=== PATIENT | female | born 1950 ===

== ENCOUNTER 2016-09-05 13:35 | Emergency (ER) | payer MEDICARE, BC ==
[2016-09-05] MEDS ORDERED: Aspirin TAB* 325 MG PO ONE (13:58)
[2016-09-05] MEDS ORDERED: Aspirin Low Dose CHEW TAB* 81 MG PO ONE (13:58)
[2016-09-05 14:28] LABS: Hematocrit 44 % (35-47); Hemoglobin 14.2 g/dl (12.0-16.0); Mean Corpuscular HGB Conc 32 g/dl (31-36); Mean Corpuscular Hemoglobin 28 pg (27-31); Mean Corpuscular Volume 87 fL (80-97); Mean Platelet Volume 9 um3 (7.4-10.4); Red Blood Count 5.07 10^6/ul (4.0-5.4); Red Cell Distribution Width 14 % (10.5-15); White Blood Count 6.3 10^3/ul (3.5-10.8)
[2016-09-05] MEDS: Nitroglycerin TAB 0.4 MG* 0.4 MG TAB SL ONE ×3 (14:28→14:48)
--- NOTE | 2016-09-05 14:29 | RAD ---
Indication: Chest pain. Single frontal view of the chest performed at 1407 hours was reviewed. Comparison is made with previous exam dated May 15, 2005. No mediastinal shift is noted. Heart is of normal size and configuration. Lung dior appear clear. IMPRESSION: NO ACTIVE CARDIOPULMONARY DISEASE IS NOTED.
[2016-09-05 14:44] LABS: Albumin 4.2 g/dL (3.2-5.2); BUN/Creatinine Ratio 15.5 (8-20); Calcium 10.4 mg/dL (8.6-10.3); EGFR African American 105.3 (>60); EGFR Non-African American 81.9 (>60); Globulin 3.2 g/dL (2-4); Potassium 3.8 mmol/L (3.5-5.0); Total Bilirubin 0.8 mg/dL (0.2-1.0); Total Protein 7.4 g/dL (6.4-8.9)
[2016-09-05 14:45] LABS: Troponin I 0.01 ng/mL (<0.04)
[2016-09-05] MEDS ORDERED: NS 0.9% 1000 ML* 1,000 ML IV ONE (15:00)
--- NOTE | 2016-09-05 15:02 | ED ---
Yoshi Diaz Matthew, scribed for Jean Conway MD on 09/05/16 at 1446 . HPI Chest Pain - HPI Summary HPI Summary: A 66 y/o female presents to the ED with intermittent chest pain since 2 weeks ago. The pain is currently rated 3/10 in severity. Last night the patient began to have associated jaw pain and left arm pain, which prompted her to presents to the ED. Associated symptoms include nausea, diaphoresis, left arm pain, pain between the shoulder blades, right arm pain, and coughing. The patient denies weakness, fever, vomiting, and pedal edema. Currently, the patient states that she is having trouble eating, because she can't put the food into her mouth w/o spitting it out. PMHx includes GERD. She states that she has chest pain often, because of her Hx of GERD. The patient is currently on a paleo diet. - History of Current Complaint Chief Complaint: EDChestPainROMI Time Seen by Provider: 09/05/16 13:58 Hx Obtained From: Patient Onset/Duration: Started Weeks Ago, Atraumatic, Still Present Timing: Intermittent, Lasting Weeks Initial Severity: Moderate Current Severity: Moderate Pain Intensity: 3 Pain Scale Used: 0-10 Numeric Chest Pain Radiates: Yes Chest Pain Radiates To:: Jaw Associated Signs and Symptoms: Positive: Chest Pain, Diaphoresis, Nausea, Cough , Other: - NO pedal edema. Negative: Weakness, Fever, Vomiting - Allergy/Home Medications Allergies/Adverse Reactions: Allergies Allergy/AdvReac Type Severity Reaction Status Date / Time Epinephrine Allergy Severe HEART Verified 09/05/16 13:47 POUNDS PMH/Surg Hx/FS Hx/Imm Hx Endocrine/Hematology History: Denies: Hx Diabetes, Hx Thyroid Disease Cardiovascular History: Reports: Hx Hypercholesterolemia Denies: Hx Hypertension, Hx Peripheral Vascular Disease, Other Cardiovascular Problems/Disorders Respiratory History: Reports: Hx Asthma - USESES INHALER Denies: Other Respiratory Problems/Disorders GI History: Reports: Hx Gastroesophageal Reflux Disease Denies: Other GI Disorders History: Denies: Hx Renal Disease Musculoskeletal History: Reports: Hx Tendonitis - LEFT HAND DOES PT Denies: Hx Arthritis, Hx Rheumatoid Arthritis, Hx Osteoporosis Sensory History: Denies: Hx Cataracts, Hx Contacts or Glasses, Hx Glaucoma, Hx Hearing Aid Opthamlomology History: Denies: Hx Cataracts, Hx Contacts or Glasses, Hx Glaucoma Neurological History: Reports: Hx Migraine - OCCULAR X2 AND 1 OR MIGRAINES Denies: Hx Headaches, Hx Seizures, Hx Transient Ischemic Attacks (TIA) Psychiatric History: Denies: Hx Anxiety, Hx Depression - Cancer History Hx Chemotherapy: No Hx Radiation Therapy: No - Surgical History Surgery Procedure, Year, and Place: partial hysterectomy 1985; cataracts right eye 04/2015. Tonsillectomy Hx Anesthesia Reactions: Yes - SENSITIVE TO ANESTHESIA Infectious Disease History: No Infectious Disease History: Denies: Traveled Outside the [place] in Last 30 Days - Family History Known Family History: Positive: Hypertension Negative: Cardiac Disease Family History: FHx of breast CA - Social History Alcohol Use: Occasionally Alcohol Amount: 1 Q 1-2 WEEKS Substance Use Type: Reports: None Smoking Status (MU): Former Smoker Amount Used/How Often: PACK A DAY Have You Smoked in the Last Year: No Review of Systems Positive: Skin Diaphoresis. Negative: Fever, Chills Eyes: Negative Negative: Erythema ENT: Negative Negative: Sore Throat Positive: Chest Pain Positive: Cough. Negative: Shortness Of Breath Gastrointestinal: Negative Positive: Nausea. Negative: Abdominal Pain, Vomiting Genitourinary: Negative Negative: dysuria, hematuria Positive: Myalgia - left arm, right arm, and jaw pain; pain between the shoulder blades Skin: Negative Negative: Rash Neurological: Negative Negative: Headache, Weakness Psychological: Normal All Other Systems Reviewed And Are Negative: Yes Physical Exam Triage Information Reviewed: Yes Vital Signs On Initial Exam: Initial Vitals Temp Pulse Resp BP Pulse Ox 98.4 F 96 16 162/83 97 09/05/16 13:47 09/05/16 13:47 09/05/16 13:47 09/05/16 13:47 09/05/16 13:47 Vital Signs Reviewed: Yes Appearance: Positive: Well-Appearing, No Pain Distress Skin: Positive: Warm, Dry Head/Face: Positive: Other - Normocephalic; Atraumatic Eyes: Positive: Conjunctiva Clear Dental: Negative: Cervical Lymphadenopathy Neck: Positive: Supple, No Lymphadenopathy, Other: - Musculoskeletal ROM normal neck; No JVD Respiratory/Lung Sounds: Positive: Breath Sounds Present, Other - Normal Effort. Negative: Rales, Rhonchi, Stridor, Tracheal Deviation, Wheezes Cardiovascular: Positive: RRR, Other - Heart sounds normal; Intact distal pulses ; The pedal pulses are 2+ and symmetric. Radial pulses are 2+ and symmetric.. Negative: Murmur Abdomen Description: Positive: Nontender, Soft, Other: - No Rebound. Negative: Distended, Guarding Musculoskeletal: Negative: Edema Left, Edema Right Neurological: Positive: Alert, Oriented to Person Place, Time Psychiatric: Positive: Affect/Mood Appropriate Diagnostics - Vital Signs Vital Signs Temp Pulse Resp BP Pulse Ox 09/05/16 13:47 98.4 F 96 16 162/83 97 - Laboratory Result Diagrams: 09/05/16 14:19 09/05/16 14:19 Lab Statement: Any lab studies that have been ordered have been reviewed, and results considered in the medical decision making process. - EKG 13:38 Cardiac Rate: NL - 87 bpm Ectopy: PVCs - Ocassional EKG Interpretation: Sinus arrhythmia; No ST Changes Chest Pain Course/Dx - Diagnoses Provider Diagnoses: Chest pain, unspecified - Provider Notifications Discussed Care Of Patient With: Dr. Hansen (Hosptialist) at 14:52 -- Notified of patient's history and will admit the patient into her services. Discharge - Discharge Plan Condition: Stable Disposition: ADMITTED TO [facility] Referrals: Yomi Brown MD [Primary Care Provider] - The documentation as recorded by the Yoshi goldberg Matthew accurately reflects the service I personally performed and the decisions made by me, Jean Conway MD.
[2016-09-05 17:19] VITALS: BP 104/49
--- NOTE | 2016-09-05 20:47 | CONS ---
HOSPITAL MEDICINE CONSULTATION REPORT: DATE OF CONSULT: 09/05/16 PRIMARY CARE PHYSICIAN: Dr. Yomi Brown. ATTENDING PHYSICIAN: Dr. Troy Luo (dictation provided by Yakelin Rogers NP). REASON FOR CONSULTATION: The patient with chest pain and recommendation for admission. HISTORY OF PRESENT ILLNESS: Ms. Loja is a 66-year-old female with past medical history of GERD who presents to the hospital today with chest discomfort and cold chills. Ms. Loja states that she has ongoing intermittent chest discomfort which has been always been attributed to her GERD. Yesterday, she felt some pain along her right jaw. This morning, she had cold chills. She states that she had discomfort in her chest, but did not feel that was not different from usual. She states that she recently went to a women's cardiac health lecture and felt like she probably met 5/7 cardiac heart disease symptoms that were noted in that lecture and therefore ultimately she decided to come to the emergency room for admission. In the emergency room, Mr. Loja had a troponin, which was 0.01 but based on her concern for chest discomfort and need to rule out acute coronary syndrome, Hospital Medicine was called for admission. PAST MEDICAL HISTORY: 1. GERD. 2. History of cataract surgery on the right. 3. Left knee meniscus repair. 4. History of whiplash with intermittent right-sided hip pain. 5. Asthma. 6. Hyperlipidemia, not currently on any medications. MEDICATIONS: 1. Calcium with phosphorus 1 chewable p.o. daily. 2. Antacid p.r.n. ALLERGIES: EPINEPHRINE. FAMILY HISTORY: The patient reports her mother is still alive. Her dad in his 90s of sepsis. There is no significant history of coronary artery disease in the family. SOCIAL HISTORY: The patient smoked over 20 years ago. Denies any alcohol or drug use. She lives with her , who is the healthcare proxy. REVIEW OF SYSTEMS: A 14-point review of systems was completed with Ms. Loja and all those not mentioned above were negative. PHYSICAL EXAM: Vital Signs: Temperature 98.4, heart rate 70, respiratory rate 13, O2 saturation 94% on room air, blood pressure 104/49. General: Ms. Loja is sitting in the bed. She is in no acute distress. She is calm and cooperative on my examination. Neuro: She is alert and oriented x3. She moves all extremities equally. There is no facial asymmetry, focal weakness. Extraocular movements are intact. Heart: S1, S2. No murmur, rub or gallop and regular. Lungs are clear to auscultation bilaterally with no accessory muscle use. Good aeration. The abdomen is soft and nontender. Bowel sounds positive x4. Extremities: No cyanosis or edema. Skin is intact. DIAGNOSTIC STUDIES/LAB DATA: Sodium 136, potassium 3.8, chloride 102, sodium bicarbonate 28, BUN 11, creatinine 0.71, glucose 106, lactic acid 0.9. WBC 6.3 , hemoglobin 14.2, hematocrit 44, platelet count 236. EKG shows sinus rhythm with no evidence of ischemia. Chest x-ray shows no acute intrathoracic process. ASSESSMENT AND PLAN: Ms. Loja is a 66-year-old female with past medical history of gastroesophageal reflux disease and distant history of smoking who presents today to the hospital with concern for right-sided jaw pain last night and chest discomfort with cold chills today. In the emergency room, she had a troponin, which was 0.01 and recommendation from the emergency room provider was for her to be admitted. Intentions were to admit the patient to the hospital; but on further conversation with her, she was not interested in staying overnight. She asked that a second troponin be drawn and a decision about staying in the hospital could be made at that time. Second troponin has been drawn and is 0.00. The patient is now requesting to leave and I have reviewed the risks and benefits of staying in the hospital for the third troponin with her. She understands that though her workup thus far has been negative without the third troponin, there is a very slight increased risk of further chest pain, cardiac injury, myocardial infarction, or . She feels comfortable with her decision and plans to follow up with her primary care physician on Thursday regarding scheduling of stress test outpatient. I think the patient would benefit from outpatient stress testing at her earliest convenience. TIME SPENT: Approximately 60 minutes were spent on the consultation of this patient, more than half time spent with her at the bedside reviewing the events leading up to this ED presentation, performing the physical examination, reviewing the plan [place] [id number]/[facility] #: [id number] MOHIT
== END 2016-09-05 20:52 | disposition left against medical advice (07) ==
LOC: ED 13:35
DX: R07.9 Chest pain, unspecified (principal); R11.0 Nausea; R05 Cough; R61 Generalized hyperhidrosis
CPT/HCPCS: 36415; 71010; 80053; 83605; 84484; 85025; 93005; 99284; A9270-GY

== ENCOUNTER 2017-04-29 07:32 | Day surgery (SDC) | payer MEDICARE, BC ==
[~2017-04-29 07:32] MED LIST: Acetaminophen TAB* 325 MG PO PRN; Buffered Lidocaine 0.9% SYRIN* 5 ML/SYR SYRINGE INTRADERM ONE
[2017-04-29] MEDS ORDERED: Midazolam* 1 MG/ML 2 ML VIAL (2 MG) ONE (09:54)
[2017-04-29] MEDS ORDERED: fentaNYL* 50 MCG/ML 2 ML VIAL (100 MCG VIAL) ONE (10:02)
[2017-04-29 10:52] VITALS: BP 113/59
[2017-04-29] MEDS ORDERED: Phenylephrine 2.5% OPTH.SOL* 2 ML BTL ONE (13:34)
[2017-04-29] MEDS ORDERED: Proparacaine 0.5% OPHTH.SOL* 15 ML BTL ONE (13:34)
[2017-04-29] MEDS ORDERED: Neomycin/Polymy/Dex OPTH.SUSP* MAXITROL 0.1% 5 ML ONE (13:34)
[2017-04-29] MEDS ORDERED: Buffered Lidocaine 0.9% SYRIN* 5 ML/SYR SYRINGE ONE (13:34)
[2017-04-29] MEDS ORDERED: Cyclopentolate 1% OPTH.SOL* 2 ML BTL ONE (13:34)
[2017-04-29] MEDS ORDERED: Povidone Iodine 5% OPTH* 30 ML BTL ONE (13:34)
[2017-04-29] MEDS ORDERED: Lidocaine 2% EPI 1:200000 MPF* 20 ML VIAL ONE (13:34)
[2017-04-29] MEDS ORDERED: acetaZOLAMIDE TAB* 250 MG ONE (13:34)
[2017-04-29] MEDS ORDERED: Lidocaine 1% MPF* 2 ML VIAL ONE (13:34)
[2017-04-29] MEDS ORDERED: Ketorolac 0.5% OPHTH (NF) 0.5 % 5 ML BTL ONE (13:35)
--- NOTE | 2017-04-29 16:14 | OP ---
DATE OF OPERATION: 04/29/17 - [facility] DATE OF : 46. SURGEON: Hossein Damon M.D. PREOPERATIVE DIAGNOSIS: Cataract left eye. POSTOPERATIVE DIAGNOSIS: Cataract left eye. OPERATIVE PROCEDURE: Phacoemulsification left eye with IOL. DESCRIPTION OF PROCEDURE: The patient was brought to the operating room after being given 1/2% Alcaine with epinephrine drops in the preoperative area. The eye was prepped and draped in the usual sterile fashion. Sterile drape and eyelid speculum were placed. Again, topical 1/2% Alcaine with epinephrine was given. A paracentesis incision was made at the 3 o'clock position with the No.75 blade. Clear cornea incision 2.2 x 2.2-mm was created at the 6 o'clock position starting at the anterior limbus using the 2.2-mm keratome. The anterior chamber was irrigated with 0.4 mL of 1% non-preservative intracameral lidocaine and filled with DisCoVisc. A capsulorrhexis was completed using the cystotome and the Utrata forceps. Hydrodissection was performed with balanced salt solution. The lens nucleus was removed with the Phacoemulsification handpiece without incident. Cortex was removed with the irrigation-aspiration handpiece. The capsular bag was re-inflated using DisCoVisc and an [id number] 18.5 implant was inserted with the shooter. The irrigation-aspiration handpiece was used to remove all residual DisCoVisc. The eye was refilled with balanced salt solution and the wound checked and found to be watertight. Topical Maxitrol drops were given. [id number]/[facility] #: [id number] [facility]
== END 2017-04-29 10:50 | disposition home or self-care (01) ==
LOC: OREAST 07:32
PROVIDERS: ATTEND Specialist
DX: H25.12 Age-related nuclear cataract, left eye (principal); H43.813 Vitreous degeneration, bilateral; E03.9 Hypothyroidism, unspecified; E78.00 Pure hypercholesterolemia, unspecified; J45.909 Unspecified asthma, uncomplicated; R73.01 Impaired fasting glucose; Z87.891 Personal history of nicotine dependence; E55.9 Vitamin D deficiency, unspecified
CPT/HCPCS: A9270-GY; J2250; J3010; V2632